=== PATIENT | female | born 2000 | race Two or more races ===

== ENCOUNTER 2021-07-05 17:00 | Outpatient (RCR) | payer OTHER, SELFPAY ==
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
== END 2021-07-05 19:48 | disposition home or self-care (01) ==
LOC: HO.PTCHIC 17:00
PROVIDERS: PCP Pediatrics; Visit Provider Pediatrics
DX: M25.571 Pain in right ankle and joints of right foot (principal)
CPT/HCPCS: 97110; 97112; 97140; 97161; 97530

== ENCOUNTER 2021-11-15 12:34 | Outpatient (REF) | payer OTHER, SELFPAY ==
[2021-11-16 08:14] LABS: HIV AB/AG Nonreactive (Nonreactive); HIV Num 1 0.14 S/CO (0.00-0.99)
[2021-11-16 08:35] LABS: Syphilis Screen Nonreactive (Nonreactive)
[2021-11-16 08:47] LABS: BV Int Neg Control Negative (Negative); BV Int Pos Control Positive (Positive)
== END 2021-11-15 12:35 | disposition home or self-care (01) ==
LOC: HO.LAB 12:34
PROVIDERS: PCP Pediatrics; Visit Provider Pediatrics
DX: Z11.4 Encounter for screening for human immunodeficiency virus [HIV] (principal); N89.8 Other specified noninflammatory disorders of vagina
CPT/HCPCS: 36415; 86780; 87389; 87480; 87510; 87660

== ENCOUNTER → 2022-01-17 14:11 | Outpatient (BNVA) | payer OTHER, SELFPAY | PROVIDERS: Visit Provider Nurse Practitioner Family | DX: Z13.89 Encounter for screening for other disorder (principal) ==

== ENCOUNTER 2023-07-02 16:14 | Outpatient (AMB) | payer OTHER, SELFPAY ==
[2023-07-02 16:19] VITALS: BP 122/78; PULSE 90; TEMP 36.6; O2SAT 97; BMI 38.8
--- NOTE | 2023-07-02 16:19 | AM.OFFWIN_ITS ---
Intake Vital Signs 07/02/23 16:19 Height 5 ft 3 in Weight 219 lb BMI 38.8 BP 122/78 Blood Pressure Location Rt brachial Position Sitting Pulse 90 Pulse Source Pulse Oximeter Temp 97.9 F Temp Source Temporal Artery Scan Pulse Oximetry (%) 97 Oxygen Delivery Method Room Air Intake Visit Reasons: EP ?UTI Intake Note: pt is here for c/o of possible UTI Patient Tobacco Use Status: Never used Tobacco Allergies No Known Allergies [No Known Allergies*] Allergy (Verified 07/05/23 08:08) Medication List - Last Reconciled 07/05/23 by Abdirahman Garcia MD sulfamethoxazole-trimethoprim 800-160 mg (Bactrim DS) 1 tab PO BID 5 days Do you need a note to return to daycare/school/sports/work: Yes HPI EP ?UTI HPI Details Patient presents for a sick visit. Reports symptoms of increased frequency of urination, burning on urination and discomfort in the suprapubic area. Symptoms started in the past few days. No fevers or chills. No nausea or vomiting. PFS Medical History ADHD Left ankle injury Migraines Mild intermittent asthma PCOS (polycystic ovarian syndrome) Social History Patient Tobacco Use Status: Never used Tobacco Physical Exam Vital Signs: Last Vital Signs Temp 97.9 F 07/02/23 16:19 Pulse 90 07/02/23 16:19 BP 122/78 07/02/23 16:19 Pulse Ox 97 07/02/23 16:19 Oxygen Delivery Method Room Air 07/02/23 16:19 BMI result Body Mass Index 38.8 Const General: cooperative and healthy appearing Nutritional Appearance: well nourished Orientation/consciousness: patient oriented x3 Limitations: no limitations HEENT Head: Yes normal to inspection Eyes General: appearance normal, both eyes and all related structures Neck Neck: Yes normal visual inspection Chest Chest palpation & inspection: normal palpation of entire chest wall Resp Effort & Inspection: normal respiratory effort General: Yes bladder normal to inspection and Yes no CVA tenderness Back/Spine/Pelvis Back: no CVA tenderness Neuro General: patient oriented x3 Results AMB Urinalysis, Automated UA Leukoctes 0 Laura/uL Last Edit by Shyam Echols CMA on 07/02/23 16:40 UA Nitrite Negative Last Edit by Shyam Echols, KRISTA on 07/02/23 16:40 UA Urobilinogen 0.2 mg/dL Last Edit by Shyam Echols, KRISTA on 07/02/23 16 :40 UA Protein 0 mg/dL Last Edit by Shyam Echols, KRISTA on 07/02/23 16:40 UA pH 6.0 Last Edit by Shyam Echols, KRISTA on 07/02/23 16:40 UA Blood 0 Jacobo/uL Last Edit by Shyam Echols, KRISTA on 07/02/23 16:40 UA Specific [place] 1.020 Last Edit by Shyam Echols CMA on 07/02/23 16:40 UA Ketone Negative Last Edit by Shyam Echols, KRISTA on 07/02/23 16:40 UA Bilirubin 0 mg/dL Last Edit by Shyam Echols, KRISTA on 07/02/23 16:40 UA Glucose 0 mg/dL Last Edit by Shyam Echols CMA on 07/02/23 16:40 Results Reviewed Results Reviewed: Laboratory Last Values Urine pH (Auto) 6.0 07/02/23 16:37 Specific [place] (Auto) 1.020 07/02/23 16:37 Urine Protein (Auto) 0 mg/dL 07/02/23 16:37 Glucose (UA)(Auto) 0 mg/dL 07/02/23 16:37 Urine Ketones (Auto) Negative 07/02/23 16:37 Urine Blood (Auto) 0 Jacobo/uL 07/02/23 16:37 Urine Nitrite (Auto) Negative 07/02/23 16:37 Urine Bilirubin (Auto) 0 mg/dL 07/02/23 16:37 Urine Urobilinogen (Auto) 0.2 mg/dL 07/02/23 16:37 Leukocyte Esterase (Auto) 0 Laura/uL 07/02/23 16:37 Assessment & Plan Assessment & Plan (1) Urinary tract infection: Code(s): N39.0 - Urinary tract infection, site not specified Qualifiers: Urinary tract infection type: site unspecified Hematuria presence: without hematuria Qualified Code(s): N39.0 - Urinary tract infection, site not specified Plan: Take antibiotics and as directed. Increase fluid intake. If symptoms of burning persist, new onset of fever or lower back pain, to follow-up at the clinic. Patient also requested for STI testing. Will call with results. Orders: Orders AMB Urinalysis Automated 07/02/23 Z13.9 - Encounter for screening, unspecified CT NG by PCR 07/02/23 Z11.3 - Encounter for screening for infections with a predominantly sexual mode of transmission Medications: New sulfamethoxazole-trimethoprim 800-160 mg (Bactrim DS) 1 tab PO BID 10 tabs 0RF 5 days Coding Level of Care Code Est Pt Level 3 (60906) Diagnoses Urinary tract infection without hematuria, site unspecified N39.0 Urinary tract infection type: site unspecified Hematuria presence: without hematuria
== END 2023-07-02 17:00 | disposition home or self-care (01) ==
PROVIDERS: Visit Provider Internal Medicine
DX: N39.0 Urinary tract infection, site not specified (principal)
CPT/HCPCS: 81003; 99213

== ENCOUNTER 2023-07-02 16:37 | Outpatient (REF) | payer OTHER, SELFPAY ==
[2023-07-03 04:29] LABS: CT PCR DETECTED (Not Detect.); NG PCR NOT DETECTED (Not Detect.)
== END 2023-07-02 16:38 | disposition home or self-care (01) ==
LOC: HO.LAB 16:37
PROVIDERS: Visit Provider Internal Medicine
DX: Z11.3 Encounter for screening for infections with a predominantly sexual mode of transmission (principal)
CPT/HCPCS: 0353U

== ENCOUNTER 2023-07-25 13:59 | Outpatient (AMB) | payer OTHER, SELFPAY ==
--- NOTE | 2023-07-25 14:44 | MHC.OFFWIV ---
Intake Vital Signs 07/25/23 14:57 Weight 217 lb BP 130/80 Blood Pressure Location Lt brachial Position Sitting Pulse 95 Pulse Source Pulse Oximeter Pulse Oximetry (%) 98 Oxygen Delivery Method Room Air Intake Visit Reasons: EST/STD testing Patient Tobacco Use Status: Never used Tobacco Allergies No Known Allergies [No Known Allergies*] Allergy (Verified 07/05/23 08:08) HPI HPI Comments History of Present Illness Details This is a 22-year-old female who presents to the office today for follow-up. Patient was evaluated here on 07/02/23 for urinary symptoms. She was diagnosed with a urinary tract infection and she was sent home on p.o. trimethoprim sulfamethoxazole x5 days. Patient also tested positive for chlamydia and azithromycin was added to her regimen. Patient states she is currently asymptomatic without vaginal discharge, dysuria, urinary frequency/urgency, fever/chills, or abdominal/pelvic pain. She would like to be retested to ensure she is negative for chlamydia. [facility] Medical History ADHD Left ankle injury Migraines Mild intermittent asthma PCOS (polycystic ovarian syndrome) Social History Patient Tobacco Use Status: Never used Tobacco Review of Systems Const All systems reviewed & are unremarkable except as noted in HPI and below Reports no additional complaints Eyes Reports no additional complaints ENT Reports no additional complaints Card Reports no additional complaints Resp Reports no additional complaints GI Reports no additional complaints Reports no additional complaints Musc Reports no additional complaints Skin/Breast Reports system reviewed and no additional complaints, except as documented Neuro Reports no additional complaints Psych Reports no additional complaints Endo Reports no additional complaints Arian/Lymph Reports no additional complaints Aller/Immun Reports no additional complaints Physical Exam Const Other: Vital signs reviewed. Constitutional: Non-toxic appearing. No acute distress. Well-developed and well-nourished. HEENT: Normocephalic and atraumatic. Skin: Warm and dry. No rashes or lesions noted. Neck: Full and painless range of motion. Cardio: Regular rate. No lower extremity edema. No JVD. Pulmonary: No respiratory distress. No accessory muscle usage. Gastrointestinal: Soft, nontender, and nondistended in all 4 quadrants. Genitourinary: No CVA tenderness. Musculoskeletal: Normal range of motion in joints throughout the body. No deformity or other signs of injury. Neuro: Alert and oriented x4. Cranial nerves 2-12 grossly intact. No focal deficits appreciated. Psych: Normal mood and affect. Assessment & Plan Assessment & Plan (1) Encounter for assessment of STD exposure: Code(s): Z20.2 - Contact with and (suspected) exposure to infections with a predominantly sexual mode of transmission Plan: This is a 22-year-old female who tested positive for chlamydia on 07/02/2023 and she was treated with azithromycin. Patient presenting for repeat testing to ensure she is negative. She is currently asymptomatic. Her vital signs are stable and she is overall nontoxic appearing. Urine sent for CT/NG testing. Patient will be called with the results. Orders: Orders CT NG by PCR Today Z20.2 - Contact with and (suspected) exposure to infections with a predominantly sexual mode of transmission Coding Level of Care Code Est Pt Level 3 (83394) Diagnoses Encounter for assessment of STD exposure Z20.2
[2023-07-25 14:57] VITALS: BP 130/80; PULSE 95; O2SAT 98
== END 2023-07-25 15:22 | disposition home or self-care (01) ==
PROVIDERS: Visit Provider Physician Assistant Medical
DX: Z20.2 Contact with and (suspected) exposure to infections with a predominantly sexual mode of transmission (principal)
CPT/HCPCS: 99213

== ENCOUNTER 2023-07-25 15:57 | Outpatient (REF) | payer OTHER, SELFPAY ==
[2023-07-25 18:35] LABS: CT PCR NOT DETECTED (Not Detect.); NG PCR NOT DETECTED (Not Detect.)
== END 2023-07-25 15:58 | disposition home or self-care (01) ==
LOC: HO.LAB 15:57
PROVIDERS: Visit Provider Physician Assistant Medical
DX: Z20.2 Contact with and (suspected) exposure to infections with a predominantly sexual mode of transmission (principal)
CPT/HCPCS: 0353U